=== PATIENT | female | born 1985 | race Caucasian/White ===

== ENCOUNTER 2019-02-17 18:09 | Inpatient (IN) | payer SELFPAY ==
[~2019-02-17 18:09] MED LIST: Bupivacaine/Epinephrine 0.25% 30 ML VIAL ONE; Lidocaine 2% MPF 10 ML AMP (For Epidural Use) ONE
[2019-02-17] MEDS ORDERED: Butorphanol Tartrate 1 MG/ML VIAL SLOW IVP PRN (18:41)
[2019-02-17] MEDS ORDERED: Ondansetron PF 4 MG/2 ML Vial IVP PRN ×2 (18:41→21:23)
[2019-02-17] MEDS ORDERED: Promethazine HCl 25 MG/ML VIAL IM PRN ×2 (18:41→21:23)
[2019-02-17] MEDS ORDERED: NS / Oxytocin 40 units/1000ml 1,000 ML IV PRN (18:45)
[2019-02-17] MEDS ORDERED: Lidocaine 1% (PF) 30 ML VIAL SC PRN (18:45)
[2019-02-17 19:04] VITALS: BMI 29.7
[2019-02-17 19:22] LABS: Hemoglobin 12.4 g/dL (12.0-16.0); Mean Corpuscular HGB CONC 35.8 g/dL (32.0-36.0); Mean Corpuscular Volume 92.2 fL (78.0-98.0); Mean Platelet Volume 8.8 fL (7.4-10.4); Platelet Count 190 thou/uL (130-400); RBC Distribution Width 11.9 % (11.5-14.5); Red Blood Cell (RBC) Count 3.77 mill/uL (4.20-5.40); White Blood Cell (WBC) Count 28.5 thou/uL (4.8-10.8)
[2019-02-17 19:30] LABS: ALT (SGPT) 37 U/L (8-55); AST (SGOT) 35 U/L (5-34); Albumin 3.9 g/dL (3.5-5.0); Alkaline Phosphatase 175 U/L (40-150); Anion Gap 19 mmol/L (10-20); BUN (Urea Nitrogen) 9 mg/dL (7.0-18.7); Calc. Creatinine Clearance 148 mL/min (70-130); Calcium 9.7 mg/dL (7.8-10.44); Carbon Dioxide 17 mmol/L (22-29); Chloride 99 mmol/L (98-107); Estimated GFR-MDRD Greater than 90; Glucose 119 mg/dL (70-105); Potassium 3.6 mmol/L (3.5-5.1); Protein, Total 6.9 g/dL (6.0-8.3); Sodium 131 mmol/L (136-145); Uric Acid 8.4 mg/dL (2.6-6.0)
[2019-02-17 19:39] LABS: Band 16 % (5-11); Lymphocytes 2 % (21-51); MDiff Complete? YES; Monocytes 1 % (0-10); Neutrophil 81 % (42-75); Platelet Morphology Comment Appears Adequate
[2019-02-17 19:48] LABS: HBSAg Index 0.43 S/CO (0-0.99); Hep B Surf Ag Non-Reactive S/CO (NonReactive); Syphilis Antibody Nonreactive (Nonreactive); Syphilis Antibody Index 0.07 S/CO (<1.00 Non-Reactive)
[2019-02-17] MEDS ORDERED: NS w/ Oxytocin 10 units 500 ML IV SCH ×2 (20:15)
[2019-02-17] MEDS ORDERED: Labetalol HCl 100 MG/20 ML VIAL SLOW IVP SCH (20:15)
[2019-02-17] MEDS ORDERED: Lactated Ringer's 1,000 ML IV SCH (20:15)
[2019-02-17] MEDS ORDERED: Fentanyl 4 mcg/Bup 0.1% Cadd 100 ML ONE (20:30)
[2019-02-17] MEDS: Lactated Ringer's 1,000 ML IV SCH (20:55)
[2019-02-17] MEDS: Fentanyl 4 mcg/Bupivacaine 0.1% Cassette 100 ML EPIDURAL SCH (21:14)
[2019-02-17] MEDS ORDERED: Naloxone HCl 0.4 mg/ml Vial IVP PRN ×2 (21:23)
[2019-02-17] MEDS ORDERED: ePHEDrine/0.9% NaCl/PF SYRINGE 50 mg/10 ml SLOW IVP PRN (21:23)
[2019-02-17] MEDS ORDERED: Lactated Ringer's 500 ML IV PRN (21:23)
[2019-02-17] MEDS ORDERED: diphenhydrAMINE 50 MG/ML VIAL IVP PRN (21:23)
[2019-02-17] MEDS ORDERED: Communication Order-Pharmacy FS SCH (21:30)
[2019-02-17] MEDS ORDERED: Calcium Carbonate 500 MG ChewTAB PO PRN (23:38)
[2019-02-18] MEDS: Lactated Ringer's 1,000 ML IV SCH ×3 (03:19→15:56)
--- NOTE | 2019-02-18 03:24 | PDOC.LDPN ---
Labor & Delivery Progress Note - Subjective Subjective: comfortable - Objective Vital signs reviewed and normal: yes General: NAD, resting Uterine fundus: non tender Dilation: 7 Effacement: 90% Station: 0 FHT: category 1 (145, mod variability, no decels) Hollis contractions every: 2-3 mins Other exam findings: + scalp stim IUPC placed: yes Plan: continue plan of care -: Counseled on slow progress and purpose of IUPC. If difficulty monitoring fetus , will place FSE
[2019-02-18] MEDS ORDERED: Fentanyl 4 mcg/Bup 0.1% Cadd 100 ML ONE ×2 (03:53→10:02)
[2019-02-18] MEDS: Fentanyl 4 mcg/Bupivacaine 0.1% Cassette 100 ML EPIDURAL SCH ×2 (04:00→10:04)
[2019-02-18 04:09] LABS: HIV (1/2) Antibody/Antigen Non-Reactive (NonReactive); HIV 1/2 INDEX 0.06 S/CO (<1.00)
[2019-02-18] MEDS: Acetaminophen 325 MG TAB PO PRN ×2 (06:12→17:01)
--- NOTE | 2019-02-18 06:45 | PDOC.LDPN ---
Labor & Delivery Progress Note - Subjective Subjective: comfortable - Objective Vital signs reviewed and normal: yes General: resting Uterine fundus: non tender Dilation: 8/95/0 @ 0538 per nurse check FHT: category 2 (150/min-mod nazanin/no accels/no decels) [place] contractions every: 2-3 minutes - Assessment (1) Term Code(s): Z34.90 - ENCNTR FOR SUPRVSN OF NORMAL , UNSP, UNSP TRIMESTER Current Visit: Yes Status: Acute (2) Chorioamnionitis in third trimester Code(s): O41.1230 - CHORIOAMNIONITIS, THIRD TRIMESTER, NOT APPLICABLE OR UNSP Current Visit: Yes Status: Acute (3) Meconium in amniotic fluid Code(s): P96.83 - MECONIUM STAINING Current Visit: Yes Status: Acute Plan: continue plan of care -: 34 yo at 41.3d by 22.0w sono here in active labor 1. Active labor - Continue pitocin augmentation - Making slow cervical change - Recheck at 745-8 2. Chorioamnionitis - Fever x1 (100.4), WBC elevated - Unable to assess fundus now with epidural - Meconium stained fluid, otherwise no foul odor - Amp/Gent started this morning 3. Meconium in amniotic fluid - Nursery/NICU team notified Continue gentle augmentation. Introduced possibility of C/S if cessation of cervical change or intolerance. Patient is aware and agreeable though strongly desires vaginal delivery. FHTs remain mostly Cat 1 with period of Cat 2 2/2 minimal variability. No decelerations. Continue close monitoring.
[2019-02-18] MEDS ORDERED: Gentamicin Sulfate 330 MG in Sodium Chloride 0.9% 100 ML IVPB SCH (07:00)
--- NOTE | 2019-02-18 08:36 | PDOC.EVN ---
Event Note - Event Note Event Note: Appointment Manager Note LDR2 I have reviewed the case with prior ObGyn physician. Labor course pre-arrival to hospital (5 to 8 to 5 cm?) discussed. Last check this am was 9cm. Patient on pitocin. IUPC in place. Dr Pablo Reece suspected OP position. DX: IUI, on A.G. I have reviewed case with Mayi (patient's RN) as well. If no descent or further progress noted in next 1-2 hours, may have to have a [id number] with the patient regarding operative delivery.
--- NOTE | 2019-02-18 09:24 | PDOC.LDPN ---
Labor & Delivery Progress Note - Subjective Subjective: comfortable - Objective Vital signs reviewed and normal: yes General: resting Uterine fundus: palpable contractions Dilation: 10 Effacement: 100% Station: 0 FHT: category 1 (155/mod/no accel/early decels) [place] contractions every: 4 AROM: meconium stained fluid - Assessment (1) Term Code(s): Z34.90 - ENCNTR FOR SUPRVSN OF NORMAL , UNSP, UNSP TRIMESTER Current Visit: Yes Status: Acute (2) Chorioamnionitis in third trimester Code(s): O41.1230 - CHORIOAMNIONITIS, THIRD TRIMESTER, NOT APPLICABLE OR UNSP Current Visit: Yes Status: Acute (3) Meconium in amniotic fluid Code(s): P96.83 - MECONIUM STAINING Current Visit: Yes Status: Acute Plan: continue plan of care -: 34 yo at 41.3d by 22.0w sono here in active labor 1. Active labor - Continue pitocin augmentation - Now complete/100/0 - Will start pushing 2. Chorioamnionitis - Fever x1 (100.4), WBC elevated - Unable to assess fundus now with epidural - Meconium stained fluid, otherwise no foul odor - Amp/Gent started this morning 3. Meconium in amniotic fluid - Nursery/NICU team notified Readdressed possibility of C/S if intolerance. Patient is aware and agreeable though strongly desires vaginal delivery. FHTs remain mostly Cat 1 with period of Cat 2 2/2 minimal variability. Early decelerations. Continue close monitoring.
--- NOTE | 2019-02-18 10:56 | PDOC.EVN ---
Event Note - Event Note Event Note: Faculty PREOP Note Indication and course: Patient has had a protected active phase of labor prior to her arrival to L&D. Now with IAI. Patient has been pushinh for 2 hours with no descent past 0 to +1. Additionally, there is persistent cat 2 tracing refractory to maternal rest. Due to the above, patient has elected (agreed) to have a primary CS. We will add ZMax to her periop ABX...then add clinda x 1 dose . DX: Protracted labor Persistent Cat 2 FHTs Failure to descend at second stage Maternal exhaustion
[2019-02-18] MEDS ORDERED: Bicitra 30 ML UDCUP ONE (11:05)
[2019-02-18] MEDS ORDERED: Azithromycin 500 MG VIAL ONE (11:14)
[2019-02-18] MEDS ORDERED: PROPOFOL 0 ML ONE (11:24)
[2019-02-18] MEDS ORDERED: Lidocaine 2% 10 ML INJ ONE ×2 (11:24→11:32)
[2019-02-18] MEDS ORDERED: Ondansetron PF 4 MG/2 ML Vial ONE ×2 (11:24→11:29)
[2019-02-18] MEDS ORDERED: ePHEDrine/0.9% NaCl/PF SYRINGE 50 mg/10 ml ONE (11:24)
[2019-02-18] MEDS ORDERED: Oxytocin 10 UNITS/ML VIAL ONE (11:24)
--- NOTE | 2019-02-18 11:24 | PDOC.EVN ---
Event Note - Event Note Event Note: Patient has been pushing for 2 hours with no descent. FHTs now persistent Category 2 with minimal variability and intermittent tachycardia. Discussed options extensively with patient and and they desire to proceed with primary C/S. Discussed risks/benefits/alternatives including infection, bleeding, damage to surrounding structures and possibility of hysterectomy. She agrees to blood transfusion if indicated. Neonatology team aware of situation. Will proceed with primary C/S for arrest of descent, NRFHT, persistent OP position and maternal exhaustion.
[2019-02-18] MEDS ORDERED: Lidocaine 2% PF 5 ML VIAL ONE (11:29)
[2019-02-18] MEDS ORDERED: Ketorolac Tromethamine 30 MG/ML VIAL ONE ×2 (11:29→12:40)
[2019-02-18] MEDS ORDERED: Ondansetron HCl/PF 4 MG/2 ML Vial IVP PRN (11:39)
[2019-02-18] MEDS ORDERED: L&D-Morphine 4 MG/ML VIAL SLOW IVP PRN (11:39)
[2019-02-18] MEDS ORDERED: HYDROmorphone 2 MG/ML VIAL SLOW IVP PRN (11:39)
[2019-02-18] MEDS ORDERED: Meperidine HCl/PF 25 MG/ML VIAL SLOW IVP PRN (11:39)
[2019-02-18] MEDS ORDERED: Naloxone HCl 0.4 mg/ml Vial IV PRN (11:40)
[2019-02-18] MEDS ORDERED: Naloxone HCl 0.4 mg/ml Vial IVP PRN ×2 (11:40)
[2019-02-18] MEDS ORDERED: Ondansetron PF 4 MG/2 ML Vial IVP PRN (11:40)
[2019-02-18] MEDS ORDERED: Promethazine HCl 25 MG SUPP PR PRN (11:40)
[2019-02-18] MEDS ORDERED: diphenhydrAMINE 50 MG/ML VIAL IVP PRN (11:40)
[2019-02-18] MEDS ORDERED: Promethazine HCl 25 MG/ML VIAL IM PRN (11:40)
[2019-02-18] MEDS ORDERED: Ketorolac Tromethamine 30 MG/ML VIAL IVP SCH (11:45)
[2019-02-18] MEDS ORDERED: Azithromycin 500 MG in Sodium Chloride 0.9% 250 ML 250 ML IVPB SCH (11:45)
[2019-02-18] MEDS ORDERED: Communication Order-Pharmacy FS SCH (11:45)
[2019-02-18] MEDS ORDERED: PHENYLEPHRINE-NS 100 MCG/ML 10 ML SYRINGE ONE (11:49)
[2019-02-18] MEDS ORDERED: Carboprost 250 MCG/ML AMP ONE (12:03)
[2019-02-18 12:13] LABS: Actual Bicarbonate (HCO3a) 27.3 mEq/L (22-28); Base Excess (BEa) -0.9 mEq/L (-2.0 to +3.0)
--- NOTE | 2019-02-18 12:36 | PDOC.OP ---
Operative Note - Operative Note Operative Note: Faculty Note Dictation to follow per Dr White Preop DX: Failure to descend IAI Maternal; exhaustion Persistent Cat 2 strip Postop DX: same Procedure: Primary LTCS without extension Surgeon: Christopher Anesthesia: WILBER Assist: Sheehan Antibiotics: ZMax 500mg x 1 in OR Faculty: Aguila Findings: Vigorous male 9#15 oz Apgars 8/9 Thick mec noted with mec stained membranes Cord gas (arterial): 7.27 NICU present for delivery Compl: none Counts correct INCISION SUTURED Path: placenta Disp: to RR in good and stable condition, continue ABX for one additioanl dose ( A/G/Clinds) Dictation pending
[2019-02-18] MEDS ORDERED: Meperidine HCl/PF 25 MG/ML VIAL ONE (13:26)
[2019-02-18 14:01] LABS: Amphetamine Not Detected (NotDetected); Barbiturates Screen Not Detected (NotDetected); Benzodiazepine Screen Not Detected (NotDetected); Cocaine Metabolite Screen Not Detected (NotDetected); Medtox Control Line Valid? VALID (VALID); Medtox Reader # READER 4; Methadone Not Detected (NotDetected); Methamphetamine Not Detected (NotDetected); Opiate Screen Not Detected (NotDetected); Oxycodone Screen Not Detected (NotDetected); Phencyclidine (PCP) Not Detected (NotDetected); THC/Cannabinoid Screen Not Detected (NotDetected); Tricyclic Screen Not Detected (NotDetected)
[2019-02-18] MEDS ORDERED: Adacel (T-DAP) 0.5 ML SYRINGE IM ONE (15:40)
[2019-02-18] MEDS ORDERED: Lanolin Ointment 7 GM TUBE TOP PRN (15:40)
[2019-02-18] MEDS: AMPicillin 2 GM in Sodium Chloride 0.9% 100 ML IVPB SCH ×2 (15:54→19:08)
[2019-02-18] MEDS: Clindamycin/D5W 900 MG in Premix Bag 1 BAG IVPB SCH ×2 (15:55→16:48)
[2019-02-18 16:08] LABS: Hemoglobin A1c 4.8 % (4.0-6.0)
[2019-02-18] MEDS: Ketorolac Tromethamine 30 MG/ML VIAL IVP PRN (18:22)
--- NOTE | 2019-02-18 21:26 | OP ---
DATE OF PROCEDURE: 02/18/2019 RESIDENT SURGEON: Katrin White MD, PGY-3 ATTENDING SURGEON: Remington Sheehan MD PROCEDURE PERFORMED: Primary low-transverse section. PREOPERATIVE DIAGNOSES: 1. Term intrauterine . 2. Arrest of descent. 3. Intra-amniotic infection. 4. Protracted labor. 5. Nonreassuring heart tones with persistent category 2 strip. POSTOPERATIVE DIAGNOSES: 1. Term intrauterine . 2. Arrest of descent 3. Intra-amniotic infection 4. Protracted labor 5. Nonreassuring heart tones with persistent category 2 strip. 6. Status post primary low-transverse section. 7. Status post delivery of macrosomic infant. 8. Meconium and amniotic fluid. ANESTHESIA: Epidural. INDICATIONS: The patient is a 34-year-old G1, P0, now P1-0-0-1 at 41.3 weeks gestation who presented as a transfer of care from [facility] on 2018. The patient arrived and was noted to have thick meconium after SROM at outside facility and was dilated to 5 cm. After extensive discussion of risks and benefits and alternatives (including C/S), the patient strongly desired to proceed with augmentation of labor with Pitocin, which was started yesterday afternoon. She progressed to 10 cm dilation and pushed for approximately 2 hours with no descent of the . Additionally, the heart tracing declined from category 1 with no accelerations to persistent category 2 with minimal variability and intermittent periods of tachycardia. Further discussion was had with the patient and her throughout her labor course regarding option for section and after no descent with pushing, they desired to proceed with this option. All risks, benefits, alternatives were explained to the patient. DESCRIPTION OF PROCEDURE: After risks, benefits, alternatives were explained to the patient, she gave informed consent. Preoperative antibiotics included ampicillin 2 g q.6 hours, gentamicin 320 mg q.24 hours, azithromycin 500 mg, Ancef 2 g IV. The patient was taken to the operating room and epidural anesthesia was determined to be adequate. She was placed in supine position with left tilt and prepped and draped in usual sterile fashion. A Pfannenstiel incision was made with a scalpel and carried down to the level of the fascia, which was sharply nicked. The fascial cut was extended bilaterally with Shook scissors. The inferior and superior edges of the cut fascial edges were elevated with Britney clamps and underlying rectus muscles were sharply and bluntly dissected free. The recti were divided digitally and retracted medially. The peritoneum was entered sharply with elevation with hemostats. An Noah O was placed. A low-transverse score was made with a scalpel, and the uterus was entered in the midline bluntly. Thick meconium and foul smelling yellow-green fluid were noted. The hysterotomy was extended manually. The was noted to be deeply impacted, vertex and OP however, easily delivered by fundal pressure. Mouth and nares bulb were bulb suctioned. Cord was clamped and cut and grossly normal male infant was handed to waiting nurse. Cord gas was obtained, which showed a pH of 7.27 with a base excess of 0.9. Cord blood was collected. Placenta was manually extracted and sent to Pathology for evaluation. The endometrium was curetted with a dry lap. The hysterotomy was closed with a running locking 1 Monocryl suture followed by a running nonlocking 1 Monocryl imbricating suture. Following this, hemostasis was noted. The abdomen was irrigated with saline thoroughly and suctioned free of clots and all discolored fluid. The Noah-O was removed. The uterus was again inspected and the hysterotomy was noted to be hemostatic. The peritoneum and rectus muscles were closed with a running nonlocking 2-0 chromic suture. The fascia was closed with a running nonlocking 0 PDS suture. The subcutaneous tissue was irrigated and all bleeders were cauterized. The subcutaneous tissue was approximated with 3 interrupted 3-0 chromic sutures. The skin was approximated with a running 4-0 Monocryl suture and Steri-Strips were applied. A pressure dressing was placed. All counts were correct. The patient tolerated the procedure well and went to the recovery room in stable condition. QUANTITATIVE BLOOD LOSS: 815 mL. COMPLICATIONS: None. SPECIMENS: Cord blood sent to lab for blood type. Placenta sent to Pathology. Cord gases obtained with a pH of 7.27 and base excess 0.9. FINDINGS: Grossly normal male with Apgars of 7 and 9. DRAINS: Cooper to gravity draining reddish orange urine, which was noted upon initiation of the procedure. This was unchanged at the end of the procedure. Job ID: [id number] [facility]
[2019-02-18] MEDS ORDERED: Acetaminophen/Codeine 30-300mg Tablet PO PRN (23:45)
[2019-02-19] MEDS: AMPicillin 2 GM in Sodium Chloride 0.9% 100 ML IVPB SCH ×2 (00:29→06:05)
[2019-02-19] MEDS: Ketorolac Tromethamine 30 MG/ML VIAL IVP PRN ×2 (00:31→12:07)
[2019-02-19] MEDS: Acetaminophen/Codeine 30-300mg Tablet PO PRN ×4 (04:46→22:01)
--- NOTE | 2019-02-19 06:42 | PDOC.PP ---
Post Progress Note Post Day #: 1 Subjective: Overall feels improved but does have some "wooziness." Has not yet been up out of bed 2/[address]. is going well. Minimal lochia. Some burning incisional pain and cramping but overall controlled. PO intake tolerated: yes Flatus: yes Ambulation: yes Vital Signs (12 hours) Temp Pulse Resp BP Pulse Ox 02/19/19 05:15 99.7 F H 108 H 18 104/64 99 02/19/19 00:30 98.5 F 114 H 18 104/69 99 02/18/19 22:05 18 97 02/18/19 19:50 97.9 F 103 H 18 98/53 L 98 Weight Weight 81.193 kg - Physical Examination General: NAD Cardiovascular: no m/r/g, RRR Respiratory: clear to auscultation bilaterally, non-labored breathing Abdominal: + bowel sounds, lochia, no distention, appropriately TTP Fundus firm & at: umbilicus Extremities: negative homans (B) Skin: CS incision dry & intact, no rash Neurological: no gross focal deficits Psychiatric: A&Ox3, normal affect Result Diagrams: 02/19/19 06:03 02/17/19 19:04 Additional Labs: Post Labs Blood Type A POSITIVE 02/17/19 20:54 Hep Bs Antigen Non-Reactive S/CO (NonReactive) 02/17/19 19:04 (1) Term Code(s): Z34.90 - ENCNTR FOR SUPRVSN OF NORMAL , UNSP, UNSP TRIMESTER Status: Acute (2) Chorioamnionitis in third trimester Code(s): O41.1230 - CHORIOAMNIONITIS, THIRD TRIMESTER, NOT APPLICABLE OR UNSP Status: Acute (3) Meconium in amniotic fluid Code(s): P96.83 - MECONIUM STAINING Status: Acute - Assessment/Plan 34 yo G1 now P1 POD #1 from primary LTCS for arrest of descent, chorio and NRFHT 1. POD #1 - Meeting all post-op milestones - Watson out and bandage off this a.m. - Discussed pain control - H&H down - discussed transfusion 2/2 tachy and symptoms - Will see how she does ambulating and likely proceed with this 2. Chorio - Amp/Gent antepartum - s/p Clinda and additional dose of Amp 3. Glucose intolerance - a1c WNL - Recommend 6 week testing 4. Macrosomic - Suspect possible GDM Overall doing well. Likely transfusion 1u pRBC today. Continue post-op care. Possible d/c tomorrow - likely Sunday.
[2019-02-19 06:45] LABS: Hemoglobin 7.3 g/dL (12.0-16.0); Mean Corpuscular Hemoglobin 32.1 pg (27.0-31.0); Mean Corpuscular Volume 94.4 fL (78.0-98.0); Mean Platelet Volume 8.4 fL (7.4-10.4); Platelet Count 121 thou/uL (130-400); RBC Distribution Width 12.1 % (11.5-14.5); Red Blood Cell (RBC) Count 2.27 mill/uL (4.20-5.40); White Blood Cell (WBC) Count 22.3 thou/uL (4.8-10.8)
--- NOTE | 2019-02-19 07:31 | PDOC.EVN ---
Event Note - Event Note Event Note: POD 1 DX: S/P primary LYCS Protracted labor IAI POSSIBLE TRANSFUSION NOTE Patient well. Noted to have HCT of 21 this AM Our QBL was 800, but her initial HCT may have been hemoconcentrated from her labor at home/outside birthing center, Pulse is 104-115 range. Afebrile (had HX IAI) Patient has not yet ambulated. I discussed this with the patient as well as Dr White. We may transfuse 1 unit PRBCs or recheck HCT in 4 hours.
[2019-02-19] MEDS: Prenatal Vitamin 1 TAB PO SCH (09:16)
[2019-02-19] MEDS: Ibuprofen 800 MG TAB PO SCH ×2 (12:17→22:00)
[2019-02-19] MEDS ORDERED: Morphine 2 MG/ML SYRINGE SLOW IVP SCH (13:15)
[2019-02-19] MEDS ORDERED: Ferrous Sulfate 325 MG TAB PO SCH (18:00)
[2019-02-20] MEDS: Ibuprofen 800 MG TAB PO SCH ×2 (05:25→14:40)
[2019-02-20] MEDS: Acetaminophen/Codeine 30-300mg Tablet PO PRN ×3 (05:25→15:25)
[2019-02-20 06:24] LABS: Hemoglobin 7.4 g/dL (12.0-16.0); Mean Corpuscular HGB CONC 33.3 g/dL (32.0-36.0); Mean Corpuscular Hemoglobin 31.8 pg (27.0-31.0); Mean Corpuscular Volume 95.4 fL (78.0-98.0); Mean Platelet Volume 8.1 fL (7.4-10.4); Platelet Count 164 thou/uL (130-400); RBC Distribution Width 11.8 % (11.5-14.5); Red Blood Cell (RBC) Count 2.31 mill/uL (4.20-5.40); White Blood Cell (WBC) Count 19.8 thou/uL (4.8-10.8)
--- NOTE | 2019-02-20 06:47 | PDOC.PP ---
Post Progress Note Post Day #: 2 Subjective: Feeling much better this morning. Minimal pain with ambulation and denies any shortness of breath. is going well, minimal lochia and no incisional pain. PO intake tolerated: yes Flatus: yes Ambulation: yes Vital Signs (12 hours) Temp Pulse Resp BP Pulse Ox 02/20/19 05:15 97.8 F 89 16 114/69 02/20/19 00:34 98.1 F 89 18 100/52 L 02/19/19 20:25 98.8 F 105 H 18 119/57 L 98 Weight Weight 81.193 kg - Physical Examination General: NAD Cardiovascular: no m/r/g, RRR Respiratory: clear to auscultation bilaterally Abdominal: + bowel sounds, lochia (scant), no distention, appropriately TTP Fundus firm & at: umbilicus Extremities: negative homans (B) Skin: CS incision dry & intact Neurological: no gross focal deficits Psychiatric: A&Ox3, normal affect Result Diagrams: 02/20/19 05:46 02/17/19 19:04 Additional Labs: Post Labs Blood Type A POSITIVE 02/17/19 20:54 Hep Bs Antigen Non-Reactive S/CO (NonReactive) 02/17/19 19:04 (1) Term Code(s): Z34.90 - ENCNTR FOR SUPRVSN OF NORMAL , UNSP, UNSP TRIMESTER Status: Acute (2) Chorioamnionitis in third trimester Code(s): O41.1230 - CHORIOAMNIONITIS, THIRD TRIMESTER, NOT APPLICABLE OR UNSP Status: Acute (3) Meconium in amniotic fluid Code(s): P96.83 - MECONIUM STAINING Status: Acute - Assessment/Plan 34 yo G1 now P1 POD #2 from primary LTCS for arrest of descent, chorio and NRFHT 1. POD #2 - Meeting all post-op milestones - Encouraged pain control - H&H stable - discussed transfusion 2/2 tachy and symptoms, declines - Tachycardia resolved at this time 2. Chorio intrapartum - No pp fever - Amp/Gent antepartum - s/p Clinda and additional dose of Amp (Gent dosed q24) 3. Glucose intolerance - a1c WNL - Recommend 6 week pp testing 4. Macrosomic infant - Suspect possible GDM - Counseled on implications in future 5. Anemia - Declined blood transfusion - Continue PO iron Overall doing well. Continue post-op care. Likely d/c tomorrow. Addendum - Attending - Attending Attestation Date/Time: 02/21/19 [id number] I personally evaluated the patient and discussed the management with Dr. White I agree with the History, Examination, Assessment and Plan documented above with any addition or exceptions noted below. Pt had no complaints. Denies s/sx of severe anemia ie sob, headache, fatigue. vssn
[2019-02-20] MEDS ORDERED: Ferrous Sulfate 325 MG TAB PO SCH (08:00)
[2019-02-20] MEDS: Prenatal Vitamin 1 TAB PO SCH (09:13)
--- NOTE | 2019-02-20 10:28 | PDOC.EVN ---
Event Note - Event Note Event Note: DISCHARGE NOTE: Discussed plan with mom. Afebrile since 02/17 and VSS. She would like to be discharged today so long as all is well with baby. Will plan for 1700 d/c after negative blood cultures on infant if no issues arise with either mom or baby today. Recommended f/u within 1-2 weeks and 6 week GTT. Discussed plan for d/c with Dr. Sheehan. OBGYN Faculty Note: Patient desires [facility] home today. She did not receive her transfusion yesterday as her tachycardia resolved as the day progressed. Afebrile. Sumi po well OK for later discharge today as discussed. DX: Protracted labor Intrapartum Fever Failure to descend Delivery by section
[2019-02-20 16:35] VITALS: BP 123/68; TEMP 99
== END 2019-02-20 19:00 | disposition home or self-care (01) | DRG 786 ==
LOC: L&D 18:09 → 3SE 02-18 15:23
PROVIDERS: ADMIT Obstetrics & Gynecology; ATTEND Obstetrics & Gynecology
PROC: 10D00Z1 Extraction of Products of Conception, Low, Open Approach (ICD-10-PCS; principal; 2019-02-18)
DX: O36.63X0 Maternal care for excessive fetal growth, third trimester, not applicable or unspecified (principal); O41.1230 Chorioamnionitis, third trimester, not applicable or unspecified; O77.0 Labor and delivery complicated by meconium in amniotic fluid; O62.1 Secondary uterine inertia; Z3A.39 39 weeks gestation of pregnancy; Z37.0 Single live birth; O76 Abnormality in fetal heart rate and rhythm complicating labor and delivery; O99.02 Anemia complicating childbirth; D64.9 Anemia, unspecified; Z53.29 Procedure and treatment not carried out because of patient's decision for other reasons
CPT/HCPCS: 36415; 51702; 80053; 80306; 81003; 82570; 82805; 83036; 83615; 84550; 85025; 85027; 86780; 86850; 86900; 86901; 87340; 87389; 88307; J0131; J0290; J0456; J0690; J1580; J1885; J2001; J2175; J2270; J2405; J2590; J2704; J3490